=== PATIENT | male | born 1950 | race Caucasian/White ===

== ENCOUNTER 2024-07-06 06:18 | Day surgery (SDC) | payer MEDICARE, BC, SELFPAY | END 2024-07-06 13:15 | disposition home or self-care (01) | LOC: GI 06:18 | PROVIDERS: ATTENDING PHYSICIAN Specialist | DX: K22.89 Other specified disease of esophagus (principal); I89.0 Lymphedema, not elsewhere classified; R12 Heartburn | CPT/HCPCS: 43239; 88305; 87220 ==